=== PATIENT | female | born 1980 | race Caucasian/White ===

== ENCOUNTER 2018-10-22 10:48 | Day surgery (SDC) | payer OTHER ==
[2018-10-22] MEDS ORDERED: LIDOCAINE 2% JELLY 20 ML (UROJECT) ONE (14:36)
[2018-10-22] MEDS ORDERED: OPIUM/BELLADONNA ALKALO SUPP PR ONE (14:37)
[2018-10-22] MEDS ORDERED: IOPAMIDOL (ISOVUE-300) 150 ML BTL ONE (14:37)
[2018-10-22] MEDS ORDERED: LR 1,000 ML IV ONE (14:45)
[2018-10-22] MEDS ORDERED: levOFLOXACIN 500 MG/DEXTROSE 100 ML IV ONE (15:01)
--- NOTE | 2018-10-22 16:11 | PDGENHP ---
History and Physical - Chief Complaint right hydronephrosis, stone, UTI - History of Present Illness 37F w hx "upj obstruction" and now fever, UTI, nonobs R renal stones, and R hydronephrosis. Due to hydro and UTI, stent is recommended. Having R flank pain and fevers. Seen by [facility] urgent care earlier. Rocephin given. Otherwise has pelvic floor dysfunction and chronic constipation. History Information - Allergies/Home Medication List Allergies/Adverse Reactions: CIPRO DOESNT WORK FOR ME Allergy (Uncoded 06/09/14 18:50) Home Medications: Bactrim DS 10/22/18 [Last Taken 10/22/18] I have personally reviewed and updated: family history, medical history, social history, surgical history - Social History Smoking Status: Never smoked Review of Systems Review of Systems: ROS: 10pt was reviewed & negative except for what was stated in HPI & below Physical Exam Physical Exam: Gen NAD A*O, appears mildly diaphoretic CV regular Lungs Normal effort Abd soft CVA tenderness YES RIGHT SIDE. Some mild L side tenderness. Ext warm Temp Pulse Resp BP Pulse Ox 37.7 C 68 16 94/54 L 92 10/22/18 14:23 10/22/18 14:23 10/22/18 14:23 10/22/18 14:23 10/22/18 14:23 Assessment & Plan Assessment: UTI, hydro R side, nonobs R renal stones Plan: TO the OR for R stent placement. Levaquin abx. Discussed placing stent, low risk procedure, benefit outweight any risks. She understands, consent received.
[2018-10-22] MEDS ORDERED: MIDAZOLAM 2 MG/2 ML VIAL ONE (16:34)
[2018-10-22] MEDS ORDERED: PROPOFOL/EMULSION 500 MG/50 ML BOTTLE IV ONE (16:50)
[2018-10-22] MEDS ORDERED: fentaNYL 100 MCG/2 ML INJ ONE (16:50)
[2018-10-22] MEDS ORDERED: IOPAMIDOL (ISOVUE-M 300) 15 ML VIAL ONE (16:54)
[2018-10-22] MEDS ORDERED: MIDAZOLAM 2 MG/2 ML VIAL IVP ONE (17:12)
[2018-10-22] MEDS ORDERED: oxyCODONE IR 5 MG TAB PO PRN (17:13)
[2018-10-22] MEDS ORDERED: METOCLOPRAMIDE 10 MG/2 ML VIAL IVP PRN (17:13)
[2018-10-22] MEDS ORDERED: fentaNYL 100 MCG/2 ML INJ IVP PRN (17:13)
[2018-10-22] MEDS ORDERED: NALOXONE HCL 0.4 MG/ML INJ IVP PRN (17:13)
[2018-10-22] MEDS ORDERED: LR 500 ML IV PRN (17:13)
[2018-10-22] MEDS ORDERED: LABETALOL HCL 20 MG/4 ML INJ IVP PRN (17:13)
[2018-10-22] MEDS ORDERED: ALBUTEROL 3 ML DEYVIAL IH PRN (17:13)
[2018-10-22] MEDS ORDERED: ONDANSETRON 4 MG/2 ML VIAL IVP PRN (17:13)
[2018-10-22] MEDS ORDERED: MEPERIDINE 25 MG/0.5 ML AMP IVP PRN (17:13)
--- NOTE | 2018-10-22 17:14 | PDANEPAE ---
ANE History of Present Illness 37 year old female for right ureteral stent placement. ANE Past Medical History - Cardiovascular History Hx Hypertension: No Hx Arrhythmias: No Hx Chest Pain: No Hx Coronary Artery / Peripheral Vascular Disease: No Hx CHF / Valvular Disease: No Hx Palpitations: No - Pulmonary History Hx COPD: No Hx Asthma/Reactive Airway Disease: No Hx Recent Upper Respiratory Infection: No Hx Oxygen in Use at Home: No Hx Sleep Apnea: No Sleep Apnea Screening Result - Last Documented: Negative - Neurologic History Hx Cerebrovascular Accident: No Hx Seizures: No Hx Dementia: No - Endocrine History Hx Diabetes: No - Renal History Hx Renal Disorders: Yes Renal History Comment: chronic kidney infections - Liver History Hx Hepatic Disorders: No - Neurological & Psychiatric Hx Hx Neurological and Psychiatric Disorders: No - Cancer History Hx Cancer: No - Congenital Disorder History Hx Congenital Disorders: No - GI History Hx Gastrointestinal Disorders: Yes Gastrointestinal History Comment: chronic constapation. gallbladder polyps - Surgical History Prior Surgeries: colonoscopies ANE Review of Systems Review of systems is: negative Review of Systems: - Exercise capacity METS (RN): 6 METS ANE Patient History - Allergies Allergies/Adverse Reactions: JUSTINA DOESNT WORK FOR ME Allergy (Uncoded 06/09/14 18:50) - Home Medications Home Medications: Bactrim DS 10/22/18 [Last Taken 10/22/18] - NPO status NPO Since - Liquids (Date): 10/22/18 NPO Since - Liquids (Time): 10:00 NPO Since - Solids (Date): 10/21/18 NPO Since - Solids (Time): 20:00 - Smoking Hx Smoking Status: Never smoked - Family Anes Hx Family Hx Anesthesia Complications: none ANE Labs/Vital Signs - Vital Signs Blood Pressure: 94/54 Heart Rate: 68 Respiratory Rate: 16 O2 Sat (%): 92 Height: 167.64 cm Weight: 56.699 kg ANE Physical Exam - Airway Mallampati Score: Class 1 Mouth exam: normal dental/mouth exam - Pulmonary Pulmonary: no respiratory distress - Cardiovascular Cardiovascular: regular rate and rhythym - ASA Status ASA Status: I ANE Anesthesia Plan Anesthesia Plan: GA w LMA
--- NOTE | 2018-10-22 17:32 | POSTOPPROG ---
Post Op Note Date of Operation: 10/22/18 Surgeon: Marylou Echavarria Anesthesiologist: Melyssa Anesthesia: LMA Pre-op Diagnosis: right hydronephrosis, UTI, stone Post-op Diagnosis: same Indication: right hydronephrosis, UTI, stone Procedure: cysto, R stent placement, fluoro Findings: good placement of stent Inf/Abcess present in the surg proc area at time of surgery?: Yes Depth: Organ Space (urologic) EBL: Minimal Complications: none. patient tolerated well
[2018-10-22] MEDS ORDERED: oxyCODONE IR 5 MG TAB ONE (18:04)
[2018-10-22 19:03] VITALS: BP 85/61
--- NOTE | 2018-10-23 04:29 | GOP ---
DATE OF OPERATION: 10/22/2018 SURGEON: Marylou Echavarria MD ANESTHESIA: LMA. ANESTHESIOLOGIST: Kaley Ragsdale MD PREOPERATIVE DIAGNOSIS: 1. Right hydronephrosis. 2. Urinary tract infection. 3. Stone. POSTOPERATIVE DIAGNOSIS: 1. Right hydronephrosis. 2. Urinary tract infection. 3. Stone. PROCEDURE PERFORMED: 1. Cystoscopy. 2. Right ureteral stent placement. 3. Intraoperative fluoroscopy. FINDINGS: Good placement of stent. ESTIMATED BLOOD LOSS: Minimal. INDICATIONS: Right hydronephrosis, UTI and stone. The patient was referred to me by Dr. Adriana rosas the [facility] for a UTI and a CT scan that showed right hydro with a large lower pole stone. My recommendation given the hydro and the UTI was stent placement with decompress ion of the right collecting system. The patient was in pain likely with pyelonephritis and desired t o have the decompression as well. She presented to the [facility] and then underwent the above pro cedure. The rationale, risks and benefits for the procedure were discussed in detail including bleed ing, infection, pain; injury to the urethra, bladder or ureter; need for IR placement of a percutaneo us tube if I cannot place a stent and need for subsequent procedures. She understood this and agreed to proceed. DESCRIPTION OF PROCEDURE: The patient was taken back to the cystoscopy suite, placed on the cystosco py table in a supine position. General anesthesia induced without complication. Time-out performed and core measures satisfied including placement of a Livier Hugger, SCDs and administration of 500 mg o f Levaquin. She was brought to the end of the table, placed in a dorsal lithotomy position. All pre ssure points padded. Genitalia draped and prepped in the standard surgical fashion with Betadine. A rigid cystoscope easily cannulated the urethral meatus, advanced atraumatically into the bladder. P an cystoscopy performed and the bladder looked overall healthy without any lesions, cellules, trabecu lations, masses, or concerns. The right and left ureteral orifices were in the correct anatomical po sition. The right ureteral orifice looked very tiny. I was able to advance a wire through the scope with fluoroscopic guidance and then a stent 6-Cymraes by multivariable in the right collecting system . There was a nice curl in the renal pelvis and a nice curl in the bladder is seen with the cystosco pe and with fluoroscopy. The stent was easily placed. The bladder was then emptied. Belladonna emily donny per rectum and lidocaine jelly placed per urethra. The procedure was considered complete. She w as awakened from anesthesia and transferred to the PACU in good condition. She will follow up with me in 2 weeks' for treatment of her stone and we will keep her on antibiotics during that time. COMPLICATIONS: None. /[id number]/MODL
== END 2018-10-22 19:53 | disposition home or self-care (01) ==
LOC: FIMAGING 10:48 → FSGY 10:48 → EDSTATUS 16:45 → FSGY 19:53
PROVIDERS: ATTEND Family Medicine
PROC: 0T768DZ Dilation of Right Ureter with Intraluminal Device, Via Natural or Artificial Opening Endoscopic (ICD-10-PCS; principal; 2018-10-22 16:45)
DX: N13.30 Unspecified hydronephrosis (principal); N39.0 Urinary tract infection, site not specified; N20.0 Calculus of kidney; M54.9 Dorsalgia, unspecified; K59.00 Constipation, unspecified; N81.89 Other female genital prolapse; Z87.442 Personal history of urinary calculi
CPT/HCPCS: 52332; 74176; 76001; C1769; C2625; J1956; J2250; J2704; J3010; Q9967

== ENCOUNTER 2018-11-02 16:17 | Day surgery (SDC) | payer MEDICAID, OTHER ==
[2018-11-02] MEDS ORDERED: ceFAZolin 2 GM in D5W 100 ML IV ONE (16:32)
[2018-11-02] MEDS ORDERED: LR 1,000 ML IV ONE (16:36)
[2018-11-02] MEDS ORDERED: LIDOCAINE 1% 2 ML INJ ID PRN (16:36)
--- NOTE | 2018-11-02 18:33 | PDHPUP ---
History & Physical Update H&P update statement: This history and physical update is based on an assessment of the patient which was completed after admission or registration (within 24 hours), but prior to the surgery/procedure. H&P update: H&P reviewed & patient examined, no change in patient's condition since H&P completed
[2018-11-02] MEDS ORDERED: MIDAZOLAM 2 MG/2 ML VIAL IVP ONE (18:34)
--- NOTE | 2018-11-02 18:34 | PDANEPAE ---
ANE History of Present Illness ureterolithiasis here for ureteroscopy laser lithotripsy ANE Past Medical History - Cardiovascular History Hx Hypertension: No Hx Arrhythmias: No Hx Chest Pain: No Hx Coronary Artery / Peripheral Vascular Disease: No Hx CHF / Valvular Disease: No Hx Palpitations: No - Pulmonary History Hx COPD: No Hx Asthma/Reactive Airway Disease: No Hx Recent Upper Respiratory Infection: No Hx Oxygen in Use at Home: No Hx Sleep Apnea: No Sleep Apnea Screening Result - Last Documented: Negative - Neurologic History Hx Cerebrovascular Accident: No Hx Seizures: No Hx Dementia: No - Endocrine History Hx Diabetes: No - Renal History Hx Renal Disorders: Yes Renal History Comment: right ureteral stone. chronic kidney infections - Liver History Hx Hepatic Disorders: No - Neurological & Psychiatric Hx Hx Neurological and Psychiatric Disorders: No - Cancer History Hx Cancer: No - Congenital Disorder History Hx Congenital Disorders: No - GI History Hx Gastrointestinal Disorders: Yes Gastrointestinal History Comment: chronic constipation - Other Health History Other Health History: none - Chronic Pain History Chronic Pain: No - Surgical History Prior Surgeries: 10/22/18 right ureteral stent with Fronczak. colonoscopies ANE Review of Systems Review of Systems: - Exercise capacity METS (RN): 6 METS ANE Patient History - Allergies Allergies/Adverse Reactions: ciprofloxacin [From Cipro] Allergy (Verified 10/30/18 15:25) doesn't work for nd - Home Medications Home Medications: Tylenol 1,000 mg 11/02/18 [Last Taken 10/31/18] - NPO status NPO Status: no food or drink >8 hours NPO Since - Liquids (Date): 11/02/18 NPO Since - Liquids (Time): 14:00 NPO Since - Solids (Date): 11/02/18 NPO Since - Solids (Time): 07:00 - Anes Hx Anes Hx: no prior problems - Smoking Hx Smoking Status: Never smoked - Alcohol Use Alcohol Use: Rarely - Family Anes Hx Family Anes Hx: none Family Hx Anesthesia Complications: none ANE Labs/Vital Signs - Vital Signs Blood Pressure: 102/67 Heart Rate: 69 Respiratory Rate: 14 O2 Sat (%): 99 Height: 167.64 cm Weight: 56.699 kg ANE Physical Exam - Airway Neck exam: FROM Mallampati Score: Class 2 Mouth exam: normal dental/mouth exam - Pulmonary Pulmonary: no respiratory distress, clear to auscultation - Cardiovascular Cardiovascular: regular rate and rhythym, no murmur, rub, or gallop - ASA Status ASA Status: II ANE Anesthesia Plan Anesthesia Plan: general endotracheal anesthesia
[2018-11-02] MEDS ORDERED: OPIUM/BELLADONNA ALKALO SUPP PR ONE (18:40)
[2018-11-02] MEDS ORDERED: LIDOCAINE 2% JELLY 20 ML (UROJECT) ONE (18:40)
[2018-11-02] MEDS ORDERED: IOPAMIDOL (ISOVUE-M 300) 15 ML VIAL ONE (18:41)
[2018-11-02] MEDS ORDERED: fentaNYL 100 MCG/2 ML INJ ONE ×2 (18:56→20:34)
[2018-11-02] MEDS ORDERED: PROPOFOL 200 MG/20 ML VIAL ONE (18:56)
[2018-11-02] MEDS ORDERED: SUGAMMADEX SODIUM 200 MG/2 ML VIAL IVP ONE (20:04)
[2018-11-02] MEDS ORDERED: KETOROLAC 30 MG/1 ML SDV ONE (20:10)
[2018-11-02] MEDS ORDERED: fentaNYL 100 MCG/2 ML INJ IVP PRN (20:22)
[2018-11-02] MEDS ORDERED: ONDANSETRON 4 MG/2 ML VIAL IVP PRN (20:22)
[2018-11-02] MEDS ORDERED: oxyCODONE IR 5 MG TAB PO PRN (20:22)
[2018-11-02] MEDS ORDERED: ACETAMINOPHEN 500 MG TAB PO PRN (20:22)
[2018-11-02] MEDS ORDERED: PROMETHAZINE HCL 25 MG/ML INJ IVP PRN (20:22)
[2018-11-02] MEDS ORDERED: NALOXONE HCL 0.4 MG/ML INJ IVP PRN (20:22)
--- NOTE | 2018-11-02 20:24 | POSTANESTH ---
Post Anesthetic Evaluation Cardiovascular Status: Normal, Stable, Similar to Pre-Op Cond Respiratory Status: Normal, Stable, Similar to Pre-op Cond. Level of Consciousness/Mental Status: Can Participate in Eval, Alert and Oriented Pain Control: Adequate, Prn Tx Ordered Nausea/Vomiting Control: Adequate, Prn Tx Ordered Complications Possibly Related to Anesthesia: None Noted
--- NOTE | 2018-11-02 20:26 | POSTOPPROG ---
Post Op Note Date of Operation: 11/02/18 Surgeon: Marylou Echavarria Anesthesiologist: Jacquelyn Anesthesia: GET(General Endotracheal) Pre-op Diagnosis: right renal stone,UPJ obs, recent UTI Post-op Diagnosis: same Indication: right renal stone,UPJ obs, recent UTI Procedure: cysto,RURS, laser endopyletomy, laser stone, basket ext stone, stnt Findings: right UPJ obs, right renal stone dusted, right hydronephrosis Inf/Abcess present in the surg proc area at time of surgery?: No EBL: Minimal Complications: None, patient tolerated procedure well Specimen(s): stone fragments
[2018-11-02] MEDS ORDERED: HYDROCODONE/APAP 5/325 TAB ONE ×2 (20:33→21:57)
[2018-11-02] MEDS: HYDROCODONE/APAP 5/325 TAB PO PRN ×2 (20:48→21:59)
[2018-11-02 22:01] VITALS: BP 111/75
--- NOTE | 2018-11-03 06:20 | GOP ---
DATE OF OPERATION: 11/02/2018 SURGEON: Marylou Echavarria MD ANESTHESIA: General. ANESTHESIOLOGIST: Dr. Valladares. PREOPERATIVE DIAGNOSIS: Right renal stone, ureteropelvic junction obstruction and recent urinary tract infection. POSTOPERATIVE DIAGNOSIS: Right renal stone, ureteropelvic junction obstruction and recent urinary tract infection. PROCEDURE PERFORMED: Cystoscopy, right ureteroscopy, laser endopyelotomy of right ureteropelvic junction obstruction, laser lithotripsy of stone, basket extraction of stone stent, intraoperative fluoroscopy. FINDINGS: Right UPJ obstruction with hydronephrotic renal pelvis and kidney. Also right lower pole renal stone that was dusted in its entirety and small fragments basket extracted. SPECIMENS: Stone. ESTIMATED BLOOD LOSS: Minimal. INDICATIONS: Right renal stone, right ureteropelvic junction obstruction, recent urinary tract infection. DESCRIPTION OF PROCEDURE: She was taken back to the cystoscopy suite, placed on the cystoscopy table in the supine position. General anesthesia induced without complication. Time-out performed and core measures satisfied including placement of a Livier Hugger, SCDs and administration of 2 g Ancef antibiotics. She was brought to the end of the table, placed in dorsal lithotomy position. All pressure points padded. Genitalia draped and prepped in a standard surgical fashion with Betadine. A rigid cystoscope easily cannulated the urethral meatus and was advanced atraumatically into the bladder. The right ureteral stent was visualized, grasped with a grasper and the distal end externalized. A 0.035 Glidewire advanced in the lumen of the stent up into the right collecting system. The stent was removed leaving the wire in place. The cystoscope was readvanced and a 2nd 0.035 Glidewire was placed in the right collecting system without difficulty. I then advanced a 12/14-Italian ureteral access sheath over 1 of the wires with fluoroscopic guidance up to the ureteropelvic junction, but not passed it and I did not feel any resistance. I then advanced a flexible cystoscope through the sheath then right up to the ureteropelvic junction, but I was unable to traverse the scope past this UPJ narrowing, I tried backloading a wire into the scope and going over a wire and again the flexible ureteroscope would not advance past this. This tight structured area is exactly where the ureteropelvic junction obstruction was and I at this point, decided to do a laser endopyelotomy lasering the lateral aspect of the ureteropelvic junction lasering down to the fat of the ureter. There was minimal bleeding and the stricture was dense. Once this was done, I was able to advance my scope into the renal pelvis and the renal pelvis was dilated as were the calices were dilated and blunted as well. I was then able to see the stone and it was in the lower pole and I advanced the laser fiber to the level of the stone and completely dusted the stone. It was nearly completely dusted. There were some larger fragments that I was able to basket extract out and send to pathology, but otherwise completely dusted the stone. I looked around and there were no other stones in any of the calices. At this point, I looked back at the ureteropelvic junction obstruction and it was open. I did laser it a little more to open it slightly wider and had my wire still across the ureteropelvic junction and at this point, I kept the wire up in the collecting system and removed the sheath and scope together examining the wall of the ureter. There were no abnormalities of the ureter. I then back-loaded the wire into my cystoscope and placed a 7-Italian multivariable stent without difficulty with a nice curl in the renal pelvis and a nice curl in the bladder. Bladder was emptied. Lidocaine jelly placed per urethra and a belladonna opium in the rectum for comfort. She was awoken from anesthesia and transferred to PACU in good condition. COMPLICATIONS: None. The patient tolerated the procedure well. INDICATION FOR PROCEDURE: The patient presented to the [facility] a couple weeks ago with a UTI and a CT scan demonstrated a right hydronephrosis with a nonobstructing renal stone and questionable UPJ obstruction. She has a known UPJ obstruction that is mild that has been followed at [facility] and apparently renal function was nearly equal on both sides, but there was some drainage issues on the right due to the obstruction as indicated with the dilated renal pelvis. However, now she presents with a UTI and a stone and she underwent a stent placement a couple weeks ago and presents today for treatment of her stone and evaluation of the UPJ obstruction and possible treatment of that as indicated. The rationale, risks, and benefits were discussed in detail. The risks included bleeding, infection, pain , injury to the urethra, bladder, the right ureter, need for subsequent procedures, inability to gain access to the stone, inability to traverse past the right ureteropelvic junction, and need for subsequent procedure. She understood this and agreed to proceed. PLAN: Will be to continue her on antibiotics for several days and then proceed with removal of the stent in 2 to 3 weeks. /[id number]/MODL MTDD
== END 2018-11-02 22:25 | disposition home or self-care (01) ==
LOC: FSGY 16:17
PROVIDERS: ATTEND Urology
DX: N20.0 Calculus of kidney (principal); N13.5 Crossing vessel and stricture of ureter without hydronephrosis
CPT/HCPCS: 52353; 76001; C1769; C1894; 82365-90; 96374; C2625; J0690; J1170; J1885; J2250; J2704; J3010; Q9967

== ENCOUNTER 2018-11-03 08:52 | Emergency (ER) | payer MEDICAID ==
--- NOTE | 2018-11-03 09:19 | EDPHY ---
H & P Stated Complaint: RUQ pain Time Seen by Provider: 11/03/18 09:05 - Personal History Current Tetanus/Diphtheria Vaccine: Yes Current Tetanus Diphtheria and Acellular Pertussis (TDAP): Yes - Medical/Surgical History Hx Asthma: No Hx Chronic Respiratory Disease: No Hx Diabetes: No Hx Cardiac Disease: No Hx Renal Disease: No Hx Cirrhosis: No Hx Alcoholism: No Hx HIV/AIDS: No Hx Splenectomy or Spleen Trauma: No Other PMH: PMH- CHRONIC CONTIPATION, LYME DISEASE, kidney stones, lithotrypsy - Social History Smoking Status: Never smoked Constitutional: Initial Vital Signs Temperature (C) 36.4 C 11/03/18 09:00 Heart Rate 57 L 11/03/18 09:00 Respiratory Rate 16 11/03/18 09:00 Blood Pressure 103/65 11/03/18 09:00 O2 Sat (%) 97 11/03/18 09:00 O2 Delivery Mode Room Air Allergies/Adverse Reactions: ciprofloxacin [From Cipro] Allergy (Verified 11/03/18 08:58) doesn't work for me Home Medications: Medication Instructions Recorded Phenazopyridine HCl [Pyridium] 200 mg PO TID PRN #21 tab 10/22/18 Cefadroxil 11/03/18 [place] 5/325 (*) 11/03/18 Oxybutynin 11/03/18 Tamsulosin HCl 11/03/18 Toradol 10mg tab 11/03/18 Medical Decision Making ED Course/Re-evaluation: CHIEF COMPLAINT: HISTORY OF PRESENT ILLNESS: must have 4 elements: Location, Quality, Severity , Duration, Timing, Context, Modifying Factors, Associated Signs and Symptoms REVIEW OF SYSTEMS: A comprehensive 10 system review of systems is otherwise negative aside from elements mentioned in the history of present illness and medical decision making. PHYSICAL EXAM: HR, BP, O2 Sat, RR. Temp noted General Appearance: Alert, well hydrated, appropriate, and non-toxic appearing. Head: Atraumatic without scalp tenderness or obvious injury Eyes: Pupils equal, round, reactive to light and accommodation, EOMI, no trauma , no injection. Ears: Clear bilaterally, no perforation, normal landmarks Nose: Atraumatic, no rhinorrhea, clear. Throat: There is no erythema or exudates, no lesions, normal tonsils, mucus membranes moist. Neck: Supple, 2+ carotid upstroke, nontender, no lymphadenopathy. Respiratory: No retractions, no distress, no wheezes, and no accessory muscle use. Lungs are clear to auscultation bilaterally. Cardiovascular: Regular rate and rhythm, no murmurs, rubs, or gallops. Bilateral carotid, radial, dorsalis pedis, and posterior tibial pulses intact. Good capillary refill all extremities. Gastrointestinal: Abdomen is soft, nontender, non-distended, no masses, no rebound, no guarding, no peritoneal signs. Musculoskeletal: Normal active ROM of all extremities, atraumatic. Neurological: Alert, appropriate, and interactive. The patient has normal DTRs and non-focal cranial nerves, motor, sensory, and cerebellar exam. Skin: No rashes, good turgor, no nodules on palpation. Past medical history: Past surgical history: Family history: Social history: DIAGNOSTICS/PROCEDURES/CRITICAL CARE TIME: DIFFERENTIAL DIAGNOSIS: MEDICAL DECISION MAKING: Departure - Departure Referrals: NONE *PRIMARY CARE P,. [Primary Care Provider] - As per Instructions
--- NOTE | 2018-11-03 09:24 | EDPHY ---
H & P Stated Complaint: RUQ pain Time Seen by Provider: 11/03/18 09:05 - Personal History Current Tetanus/Diphtheria Vaccine: Yes Current Tetanus Diphtheria and Acellular Pertussis (TDAP): Yes - Medical/Surgical History Hx Asthma: No Hx Chronic Respiratory Disease: No Hx Diabetes: No Hx Cardiac Disease: No Hx Renal Disease: No Hx Cirrhosis: No Hx Alcoholism: No Hx HIV/AIDS: No Hx Splenectomy or Spleen Trauma: No Other PMH: PMH- CHRONIC CONTIPATION, LYME DISEASE, kidney stones, lithotrypsy - Social History Smoking Status: Never smoked Constitutional: Initial Vital Signs Temperature (C) 36.4 C 11/03/18 09:00 Heart Rate 57 L 11/03/18 09:00 Respiratory Rate 16 11/03/18 09:00 Blood Pressure 103/65 11/03/18 09:00 O2 Sat (%) 97 11/03/18 09:00 O2 Delivery Mode Room Air Allergies/Adverse Reactions: ciprofloxacin [From Cipro] Allergy (Verified 11/03/18 08:58) doesn't work for me Home Medications: Medication Instructions Recorded Phenazopyridine HCl [Pyridium] 200 mg PO TID PRN #21 tab 10/22/18 Cefadroxil 11/03/18 HYDROmorphone HCL [Dilaudid 2 mg 2 mg PO Q6-8PRN PRN #14 tab 11/03/18 (*)] Jerome 5/325 (*) 11/03/18 Ondansetron Odt [Zofran Odt 4 mg 4 mg PO Q4 PRN #10 tab 11/03/18 (RX)] Oxybutynin 11/03/18 Tamsulosin HCl 11/03/18 Toradol 10mg tab 11/03/18 Medical Decision Making - Diagnostics Imaging Results: Imaging Impressions Abdomen/Pelvis Ultrasound 11/03/18 09:21 Impression: 1. No residual right hydronephrosis. 2. Well-positioned right ureteral stent. 3. No perinephric fluid collection. Findings discussed with Emergency Department physician, Abdirizak Egan MD on at 11:16 a.m. 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 She presents today complaining of severe right flank pain. Two weeks ago, she had a kidney stone and subsequent pyelonephritis and underwent surgical intervention with stent placement. Last night she had a lithotripsy, UPJ ablation, and stent replacement. This morning, she woke with severe right flank pain which is exacerbated by movement. Describes "excruciating" right-sided abdominal and flank pain when standing. She has associated nausea. She endorses hematuria. She called her surgeon, Dr. Echavarria, and the office referred her to the ED for evaluation. She denies fever , vomiting, diarrhea, or other symptoms of systemic illness. Denies history of other abdominal surgeries. REVIEW OF SYSTEMS: A comprehensive 10 system review of systems is otherwise negative aside from elements mentioned in the history of present illness and medical decision making. PHYSICAL EXAM: HR, BP, O2 Sat, RR. Temp noted General Appearance: Alert, well hydrated, appropriate, and non-toxic appearing. Head: Atraumatic without scalp tenderness or obvious injury Eyes: Pupils equal, round, reactive to light and accommodation, EOMI, no trauma , no injection. Ears: Clear bilaterally, no perforation, normal landmarks Nose: Atraumatic, no rhinorrhea, clear. Throat: There is no erythema or exudates, no lesions, normal tonsils, mucus membranes moist. Neck: Supple, 2+ carotid upstroke, nontender, no lymphadenopathy. Respiratory: No retractions, no distress, no wheezes, and no accessory muscle use. Lungs are clear to auscultation bilaterally. Cardiovascular: Regular rate and rhythm, no murmurs, rubs, or gallops. Bilateral carotid, radial, dorsalis pedis, and posterior tibial pulses intact. Good capillary refill all extremities. Gastrointestinal: Abdomen is soft, nontender, non-distended, no masses, no rebound, no guarding, no peritoneal signs. Musculoskeletal: Normal active ROM of all extremities, atraumatic. Neurological: Alert, appropriate, and interactive. The patient has normal DTRs and non-focal cranial nerves, motor, sensory, and cerebellar exam. Skin: No rashes, good turgor, no nodules on palpation. Past medical history: Kidney stones Past surgical history: UPJ ablation 11/02/[address] Echavarria. Family history: Noncontributory. Social history: Friend at bedside. Lives in [place]. Does not abuse tobacco, drugs, or alcohol. DIFFERENTIAL DIAGNOSIS: The differential diagnosis for the patient's flank pain included but was not limited to musculoskeletal causes, kidney stone, pyelonephritis, shingles, diverticulitis, appendicitis, and aortic aneurysm. MEDICAL DECISION [id number] y/o female s/p UPJ ablation and ureteral stent placement 11/02/18 presents with severe right flank pain and associated nausea. Plan for US for evaluation of stent placement and to r/o other acute processes. Plan to administer 1mg IV Dilaudid for pain relief. 11:00 Reassessed. US report pending. Elevated WBC is likely due to the procedure. UA positive for hematuria, also consistent with recent procedure. 11:[address] Ortega, radiologist. Stent is well placed. No evidence of obstruction. No hydronephrosis. 11:15 Reassessed. Discussed imaging and laboratory results. The patient is relieved that the stent is in the proper place. Plan to discharge home in good condition. She will follow up with Dr. Echavarria as directed. She will be given a prescription for Dilaudid for severe pain and Zofran for nausea relief. Follow up and return precautions discussed. She is comfortable with this plan. - Data Points Laboratory Results: Laboratory Results 11/03/18 10:30 11/03/18 10:30 11/03/18 11/03/18 11/03/18 10:30 10:30 10:30 WBC 20.66 10^3/uL H 10^3/uL (3.80-9.50) RBC 4.23 10^6/uL 10^6/uL (4.18-5.33) Hgb 12.0 g/dL L g/dL (12.6-16.3) Hct 36.0 % L % (38.0-47.0) MCV 85.1 fL fL (81.5-99.8) MCH 28.4 pg pg (27.9-34.1) MCHC 33.3 g/dL g/dL (32.4-36.7) RDW 13.1 % % (11.5-15.2) Plt Count 391 10^3/uL 10^3/uL (150-400) MPV 9.1 fL fL (8.7-11.7) Neut % (Auto) 86.9 % H % (39.3-74.2) Lymph % (Auto) 8.3 % L % (15.0-45.0) [place] % (Auto) 3.8 % L % (4.5-13.0) Eos % (Auto) 0.4 % L % (0.6-7.6) Baso % (Auto) 0.2 % L % (0.3-1.7) Nucleat RBC Rel Count 0.0 % % (0.0-0.2) Absolute Neuts (auto) 17.95 10^3/uL H 10^3/uL (1.70-6.50) Absolute Lymphs (auto) 1.72 10^3/uL 10^3/uL (1.00-3.00) Absolute Monos (auto) 0.78 10^3/uL 10^3/uL (0.30-0.80) Absolute Eos (auto) 0.08 10^3/uL 10^3/uL (0.03-0.40) Absolute Basos (auto) 0.04 10^3/uL 10^3/uL (0.02-0.10) Absolute Nucleated RBC 0.00 10^3/uL 10^3/uL (0-0.01) Immature Gran % 0.4 % % (0.0-1.1) Immature Gran # 0.09 10^3/uL 10^3/uL (0.00-0.10) Sodium 130 mEq/L L mEq/L (135-145) Potassium 4.4 mEq/L mEq/L (3.5-5.2) Chloride 95 mEq/L L mEq/L (97-110) Carbon Dioxide 24 mEq/l mEq/l (22-31) Anion Gap 11 mEq/L mEq/L (6-14) BUN 7 mg/dL mg/dL (7-23) Creatinine 0.7 mg/dL mg/dL (0.6-1.0) Estimated GFR > 60 Glucose 84 mg/dL mg/dL (70-100) Calcium 8.9 mg/dL mg/dL (8.5-10.4) Total Bilirubin 0.7 mg/dL mg/dL (0.1-1.4) Conjugated Bilirubin 0.0 mg/dL mg/dL (0.0-0.5) Unconjugated Bilirubin 0.7 mg/dL mg/dL (0.0-1.1) AST 20 IU/L IU/L (14-46) ALT 22 IU/L IU/L (9-52) Alkaline Phosphatase 41 IU/L IU/L (38-126) Total Protein 6.1 g/dL L g/dL (6.3-8.2) Albumin 3.6 g/dL g/dL (3.5-5.0) Lipase 54 IU/L IU/L (23-300) Urine Color YELLOW Urine Appearance HAZY Urine pH 6.0 (5.0-7.5) Ur Specific [place] 1.005 (1.002-1.030) Urine Protein NEGATIVE (NEGATIVE) Urine Ketones NEGATIVE (NEGATIVE) Urine Blood 3+ H (NEGATIVE) Urine Nitrate NEGATIVE (NEGATIVE) Urine Bilirubin NEGATIVE (NEGATIVE) Urine Urobilinogen NEGATIVE EU EU (0.2-1.0) Ur Leukocyte Esterase 1+ H (NEGATIVE) Urine RBC 25-50 /hpf H /hpf (0-3) Urine WBC 10-15 /hpf H /hpf (0-3) Ur Epithelial Cells TRACE /lpf /lpf (NONE-1+) Urine Bacteria 2+ /hpf H /hpf (NONE SEEN) Urine Mucus TRACE /lpf /lpf (NONE-1+) Urine Glucose NEGATIVE (NEGATIVE) Medications Given: Discontinued Medications Hydromorphone HCl (Dilaudid) 1 mg IVP EDNOW ONE Stop: 11/03/18 10:34 Last Admin: 11/03/18 10:38 Dose: 1 mg Sodium Chloride (Ns) 1,000 mls @ 0 mls/hr IV EDNOW ONE; Wide Open PRN Reason: Protocol Stop: 11/03/18 09:38 Last Admin: 11/03/18 10:25 Dose: 1,000 mls Departure - Departure Disposition: Home, Routine, Self-Care Clinical Impression: Right flank pain Condition: Good Instructions: Flank Pain (ED) Additional Instructions: Follow up with Dr. Echavarria as directed. Take Dilaudid as prescribed as needed for severe pain. Take Zofran as prescribed as needed for nausea. Return for worsening pain, fever, or other worsening of condition. Referrals: Marylou Echavarria MD [Medical Doctor] - As per Instructions Prescriptions: HYDROmorphone HCL [Dilaudid 2 mg (*)] 2 mg PO Q6-8PRN PRN #14 tab PRN Reason: Pain, Moderate Ondansetron Odt [Zofran Odt 4 mg (RX)] 4 mg PO Q4 PRN #10 tab PRN Reason: Nausea/Vomiting, Use 1st Report Scribed for: Abdirizak Egan Report Scribed by: Eliz Castro Date of Report: 11/03/18 Time of Report: 09:25
[2018-11-03] MEDS ORDERED: NS 1,000 ML IV ONE (09:37)
[2018-11-03] MEDS ORDERED: HYDROmorphONE/DILAUDID 2 MG/ML INJ IVP ONE (10:33)
[2018-11-03 11:07] LABS: PLATELET COUNT 391 10^3/uL (150-400)
[2018-11-03 11:54] VITALS: BP 96/67
== END 2018-11-03 12:01 | disposition home or self-care (01) ==
DX: R10.31 Right lower quadrant pain (principal); E86.9 Volume depletion, unspecified; Z96.0 Presence of urogenital implants; Z98.890 Other specified postprocedural states
CPT/HCPCS: 96374; J1170

== ENCOUNTER → 2019-02-23 | Outpatient (CLI) | payer MEDICAID | LOC: FIMAGING 10:09 | PROVIDERS: ATTEND Urology | DX: N13.30 Unspecified hydronephrosis (principal); R33.9 Retention of urine, unspecified ==

== ENCOUNTER → 2019-02-24 | Outpatient (CLI) | payer MEDICAID ==
[~2019-02-24] MED LIST: FUROSEMIDE 20 MG/2 ML VIAL ONE
== END ==
LOC: FIMAGING 10:22
PROVIDERS: ATTEND Urology
DX: N28.89 Other specified disorders of kidney and ureter (principal)
CPT/HCPCS: 78708; A9562; J1940